=== PATIENT | female | born 2000 | race Caucasian/White ===

== ENCOUNTER 2019-01-06 18:40 | Emergency (ER) | payer OTHER ==
--- NOTE | 2019-01-06 18:58 | EDM.PDOC ---
ED HPI GENERAL MEDICAL PROBLEM - General Chief Complaint: Abdominal Pain Stated Complaint: lower abdominal pain Time Seen by Provider: 01/06/19 18:55 Source of Information: Reports: Patient, RN Notes Reviewed History Limitations: Reports: No Limitations - History of Present Illness INITIAL COMMENTS - FREE TEXT/NARRATIVE: Patient is a 18-year-old female who presents to the ED for evaluation of lower abdominal pain. She notes that this pain has been present for 3 days now. She states that she has a history of ovarian cysts as diagnosed by ultrasound. She notes that her last menstrual period was December 13. She states that she normally get cramps with her periods on the first day. She notes this pain to be dull/ crampy in nature. She did take 200 mg ibuprofen yesterday and this provided little relief. She describes more of a discomfort than a pain. She denies any sexual activity. She notes her mother has a history of ovarian cysts. She further denies any nausea/vomiting/diarrhea, fever/chills or constipation. She states that she had a good BM at noon today. She does not take daily medications except for some allergy medications and vitamins. She states that she does feel discomfort in her pelvis or lower abdomen however this is mostly located on the right lower quadrant of her abdomen. She denies any abdominal surgeries at this time. She states that she's been in fairly good health prior to this. Bilateral Lower Abdomen Pain Score (Numeric/FACES): 4 - Related Data Allergies Allergy/AdvReac Type Severity Reaction Status Date / Time amoxicillin [From Augmentin] AdvReac Mild Other Verified 01/06/19 19:39 clavulanic acid AdvReac Mild Other Verified 01/06/19 19:39 [From Augmentin] Home Meds: Home Meds . [No Known Home Meds] 01/06/19 [History] Past Medical History [facility] History: Reports: Other (See Below) (Right sided ovarian cyst) Social & Family History - Family History OBGYN: Reports: Other (See Below) (mother has ovarian cysts) - Tobacco Use Smoking Status *Q: Never Smoker - Alcohol Use Alcohol Use History: No - Sexual History Sexual History: Reports: None ED ROS GENERAL - Review of Systems Review Of Systems: See Below Constitutional: Denies: Fever, Chills HEENT: Reports: No Symptoms Respiratory: Reports: No Symptoms Cardiovascular: Reports: No Symptoms Endocrine: Reports: No Symptoms GI/Abdominal: Reports: Abdominal Pain (lower abd, mainly RLQ). Denies: Constipation, Diarrhea, Distension, Nausea, Vomiting : Reports: No Symptoms Musculoskeletal: Reports: No Symptoms Skin: Reports: No Symptoms Neurological: Reports: No Symptoms Psychiatric: Reports: No Symptoms Hematologic/Lymphatic: Reports: No Symptoms ED EXAM, GI/ABD - Physical Exam Exam: See Below Exam Limited By: No Limitations General Appearance: Alert, WD/WN, No Apparent Distress Eyes: Bilateral: Normal Appearance Ears: Normal External Exam Nose: Normal Inspection Throat/Mouth: Normal Inspection, Normal Lips, Normal Teeth, Normal Gums, Normal Oropharynx, Normal Voice, No Airway Compromise Head: Atraumatic, Normocephalic Neck: Normal Inspection Respiratory/Chest: No Respiratory Distress, Lungs Clear, Normal Breath Sounds, No Accessory Muscle Use, Chest Non-Tender Cardiovascular: Normal Peripheral Pulses, Regular Rate, Rhythm, No Murmur GI/Abdominal Exam: Normal Bowel Sounds, Soft, No Organomegaly, No Distention, No Mass, Rebound (RLQ), Tender (slightly tender over RLQ) Extremities: Normal Inspection, Normal Capillary Refill Neurological: Alert, Oriented, Normal Cognition, Normal Gait, No Motor/Sensory Deficits Psychiatric: Normal Affect, Normal Mood Skin Exam: Warm, Dry, Intact, Normal Color, No Rash Course - Vital Signs Last Recorded V/S: Last Vital Signs Temp 98.6 F 01/06/19 18:54 Pulse 85 01/06/19 18:54 Resp 18 01/06/19 18:54 BP 147/88 H 01/06/19 18:54 Pulse Ox 100 01/06/19 18:54 - Orders/Labs/Meds Orders: Active Orders 24 hr Category Date Time Status Sodium Chloride 0.9% [Saline Flush] Med 01/06/19 20:15 Active 10 ml FLUSH ONETIME PRN Medication Orders Sodium Chloride (Saline Flush) 10 ml FLUSH ONETIME PRN PRN Reason: KEEP VEIN OPEN Last Admin: 01/06/19 20:42 Dose: 10 ml Labs: Laboratory Tests 01/06/19 01/06/19 01/06/19 Range/Units 19:30 19:30 19:35 WBC 8.38 (3.98-10.04) K/mm3 RBC 5.07 (3.98-5.22) M/mm3 Hgb 14.4 (11.2-15.7) gm/L Hct 42.2 (34.1-44.9) % MCV 83.2 (79.4-94.8) fl MCH 28.4 (25.6-32.2) pg MCHC 34.1 (32.2-35.5) g/dl RDW Std Deviation 36.5 (36.4-46.3) fL Plt Count 351 (182-369) K/mm3 MPV 9.4 (9.4-12.3) fl Neutrophils % (Manual) 69 H (40-60) % Band Neutrophils % 0 (0-10) % Lymphocytes % (Manual) 24 (20-40) % Atypical Lymphs % 0 % Monocytes % (Manual) 6 (2-10) % Eosinophils % (Manual) 0 L (0.7-5.8) % Basophils % (Manual) 1 (0.1-1.2) Platelet Estimate Adequate Plt Morphology Comment Normal RBC Morph Comment Normal Sodium (136-145) mEq/L Potassium (3.5-5.1) mEq/L Chloride (98-107) mEq/L Carbon Dioxide (21-32) mEq/L Anion Gap (5-15) BUN (7-18) mg/dL Creatinine (0.55-1.02) mg/dL Est Cr Clr Drug Dosing mL/min Estimated GFR (MDRD) (>60) mL/min BUN/Creatinine Ratio (14-18) Glucose (74-106) mg/dL Calcium (8.5-10.1) mg/dL Total Bilirubin (0.2-1.0) mg/dL AST (15-37) U/L ALT (14-59) U/L Alkaline Phosphatase (46-116) U/L Total Protein (6.4-8.2) g/dl Albumin (3.4-5.0) g/dl Globulin gm/dL Albumin/Globulin Ratio (1-2) Urine Color Yellow (Yellow) Urine Appearance Clear (Clear) Urine pH 5.5 (5.0-8.0) Ur Specific [place] 1.010 (1.005-1.030) Urine Protein Negative (Negative) Urine Glucose (UA) Negative (Negative) Urine Ketones Negative (Negative) Urine Occult Blood Negative (Negative) Urine Nitrite Negative (Negative) Urine Bilirubin Negative (Negative) Urine Urobilinogen 0.2 (0.2-1.0) Ur Leukocyte Esterase Negative (Negative) Urine RBC Not seen (0-5) /hpf Urine WBC 0-5 (0-5) /hpf Ur Epithelial Cells 0-5 (0-5) /hpf Urine Bacteria Rare (FEW) /hpf Urine Mucus Not seen (FEW) /hpf Urine HCG, Qual Negative (NEGATIVE) 01/06/19 Range/Units 19:35 WBC (3.98-10.04) K/mm3 RBC (3.98-5.22) M/mm3 Hgb (11.2-15.7) gm/L Hct (34.1-44.9) % MCV (79.4-94.8) fl MCH (25.6-32.2) pg MCHC (32.2-35.5) g/dl RDW Std Deviation (36.4-46.3) fL Plt Count (182-369) K/mm3 MPV (9.4-12.3) fl Neutrophils % (Manual) (40-60) % Band Neutrophils % (0-10) % Lymphocytes % (Manual) (20-40) % Atypical Lymphs % % Monocytes % (Manual) (2-10) % Eosinophils % (Manual) (0.7-5.8) % Basophils % (Manual) (0.1-1.2) Platelet Estimate Plt Morphology Comment RBC Morph Comment Sodium 140 (136-145) mEq/L Potassium 3.6 (3.5-5.1) mEq/L Chloride 104 (98-107) mEq/L Carbon Dioxide 26 (21-32) mEq/L Anion Gap 13.6 (5-15) BUN 11 (7-18) mg/dL Creatinine 0.8 (0.55-1.02) mg/dL Est Cr Clr Drug Dosing 114.10 mL/min Estimated GFR (MDRD) > 60 (>60) mL/min BUN/Creatinine Ratio 13.8 L (14-18) Glucose 122 H (74-106) mg/dL Calcium 9.4 (8.5-10.1) mg/dL Total Bilirubin 0.6 (0.2-1.0) mg/dL AST 15 (15-37) U/L ALT 22 (14-59) U/L Alkaline Phosphatase 78 (46-116) U/L Total Protein 7.4 (6.4-8.2) g/dl Albumin 4.6 (3.4-5.0) g/dl Globulin 2.8 gm/dL Albumin/Globulin Ratio 1.6 (1-2) Urine Color (Yellow) Urine Appearance (Clear) Urine pH (5.0-8.0) Ur Specific [place] (1.005-1.030) Urine Protein (Negative) Urine Glucose (UA) (Negative) Urine Ketones (Negative) Urine Occult Blood (Negative) Urine Nitrite (Negative) Urine Bilirubin (Negative) Urine Urobilinogen (0.2-1.0) Ur Leukocyte Esterase (Negative) Urine RBC (0-5) /hpf Urine WBC (0-5) /hpf Ur Epithelial Cells (0-5) /hpf Urine Bacteria (FEW) /hpf Urine Mucus (FEW) /hpf Urine HCG, Qual (NEGATIVE) Meds: Medications Generic Name Dose Route Start Last Admin Trade Name Freq PRN Reason Stop Dose Admin Sodium Chloride 10 ml 01/06/19 20:15 01/06/19 20:42 Saline Flush FLUSH 10 ml ONETIME PRN Administration KEEP VEIN OPEN Discontinued Medications Generic Name Dose Route Start Last Admin Trade Name Freq PRN Reason Stop Dose Admin Iohexol 100 ml 01/06/19 20:15 01/06/19 20:42 Omnipaque-300 IVPUSH 01/06/19 20:16 100 ml ONETIME ONE Administration - Radiology Interpretation Free Text/Narrative:: CT of the abdomen and pelvis reveals a normal-appearing appendix. A 5.3 cm simple appearing cyst within the right adnexa which displaces the uterus to the left side. Gastroesophageal reflux of the contrast. But no other additional abnormality that is appreciated on the CT study of the abdomen and pelvis. - Re-Assessments/Exams Free Text/Narrative Re-Assessment/Exam: 01/06/19 19:25 Patient presents to the ED for evaluation of abdominal pain. Have ordered an abdominal pelvis CT with contrast, CBC, CMP, qualitative urine hCG, and a UA for further evaluation. 01/06/19 20:08 Patient's laboratory evaluation is back, and are unremarkable. 01/06/19 21:[address] did demonstrate a 5.3 simple appearing ovarian cyst on the right adnexa. We'll recommend that she follow up with an [facility] provider of choice. We'll provide her with her clinic numbers and give her other general recommendations for pain relief. Departure - Departure Time of Disposition: 21:14 Disposition: Home, Self-Care 01 Condition: Fair Clinical Impression: Right ovarian cyst - Discharge Information *PRESCRIPTION DRUG MONITORING PROGRAM REVIEWED*: No *COPY OF PRESCRIPTION DRUG MONITORING REPORT IN PATIENT NEENA: No Instructions: Ovarian Cyst, [id number] Referrals: Feli Kramer NP [Primary Care Provider] - Forms: ED Department Discharge Additional Instructions: You have been evaluated in the ED today for your right lower quadrant/pelvic pain. Your laboratory evaluation was is in normal limits. Your CT demonstrated a normal appendix, and a 5.3 cm simple-appearing cyst on your right fallopian tube. Recommend that you follow up with [facility] provider of choice within the next week or 2 for further management of this. Our clinic number is [phone]. You may take 400-600 mg ibuprofen or 500 mg Tylenol every 6 hours as needed for pain relief. Do not exceed 3200 mg Ibuprofen or 4000 mg Tylenol in a 24-hour time span. Please return to the ED if her symptoms change or worsen. - My Orders Last 24 Hours: My Active Orders 01/06/19 20:15 Sodium Chloride 0.9% [Saline Flush] 10 ml FLUSH ONETIME PRN - Assessment/Plan Last 24 Hours: My Active Orders 01/06/19 20:15 Sodium Chloride 0.9% [Saline Flush] 10 ml FLUSH ONETIME PRN
[2019-01-06] MEDS ORDERED: Iohexol 647 MG/ML 100 ML Bottle IVPUSH ONE (20:15)
[2019-01-06] MEDS ORDERED: Sodium Chloride 0.9% 10 ML Syringe FLUSH PRN (20:15)
--- NOTE | 2019-01-06 21:09 | CT ---
CT abdomen and pelvis Technique: Multiple axial sections were obtained from above the dome of the diaphragm inferiorly through the pubic symphysis. Intravenous and oral contrast was utilized. Delayed images were obtained through the bladder. Comparison: No prior abdominal imaging. Findings: Appendix is visualized and appears normal. Right sided adnexal cyst is seen measuring 5.3 cm. This has simple Hounsfield unit measurements and does not appear to be hemorrhagic. This cyst displaces the uterus to the left side. Small portion of the visualized lung bases show nothing acute. Liver contains no focal abnormality. Spleen appears within normal limits. Small amount of contrast reflux is seen into the distal esophagus. Kidneys show symmetric contrast enhancement without hydronephrosis or mass. Pancreas is within normal limits. Gallbladder contains no calcified gallstones. Aorta shows no aneurysm. No retroperitoneal adenopathy or mesenteric abnormalities are seen. No additional pelvic abnormality is seen. Delayed images shows contrast within the distal ureters and bladder. Bone window settings were reviewed which appear within normal limits for the patient's age. Impression: 1. Normal-appearing appendix. 2. 5.3 cm simple appearing cyst within the right adnexa displacing the uterus to the left side. 3. Gastroesophageal reflux of contrast. 4. No additional abnormality is appreciated on CT study of the abdomen and pelvis. Diagnostic code #3
== END 2019-01-06 21:25 | disposition home or self-care (01) ==
LOC: JD.ED 18:40
DX: N83.201 Unspecified ovarian cyst, right side (principal); Z88.1 Allergy status to other antibiotic agents
CPT/HCPCS: 36415; 74177; 80053; 81001; 81025; 85007; 85027; 99284; Q9967

== ENCOUNTER 2019-01-24 06:27 | Day surgery (SDC) | payer OTHER ==
[~2019-01-24 06:27] MED LIST: Lactated Ringers 1,000 ML IV SCH; Lidocaine 1%/Sod Bicarbonate in NS 8.4% 1 ML Syringe IDERM PRN; Sodium Chloride 0.9% 10 ML Syringe FLUSH PRN
[2019-01-24] MEDS ORDERED: Bupivacaine 0.5% 30 ML SDV ONE (06:58)
--- NOTE | 2019-01-24 07:15 | PCM.PREANE ---
Preanesthetic Assessment - Anesthesia/Transfusion/Family Hx Anesthesia History: Prior Anesthesia Without Reaction Family History of Anesthesia Reaction: No Transfusion History: No Prior Transfusion(s) - Review of Systems General: No Symptoms Pulmonary: No Symptoms Cardiovascular: No Symptoms Gastrointestinal: No Symptoms Neurological: No Symptoms Other: Reports: None - Physical Assessment NPO Status Date: 01/23/19 NPO Status Time: 22:00 Pulse: 90 O2 Sat by Pulse Oximetry: 100 Respiratory Rate: 16 Blood Pressure: 143/75 Temperature: 36.6 C Vital Signs: Last Vital Signs Temp 36.6 C 01/24/19 06:38 Pulse 90 01/24/19 06:38 Resp 16 01/24/19 06:38 BP 143/75 H 01/24/19 06:38 Pulse Ox 100 01/24/19 06:38 Height: 1.7 m Weight: 69.7 kg ASA Class: 2 Mental Status: Alert & Oriented x3 Airway Class: Mallampati = 1 Dentition: Reports: Normal Dentition Thyro-Mental Finger Breadths: 3 Mouth Opening Finger Breadths: 3 ROM/Head Extension: Full Lungs: Clear to Auscultation, Normal Respiratory Effort Cardiovascular: Regular Rate, Regular Rhythm - Lab Values: Laboratory Last Values Urine Color Yellow (Yellow) 01/24/19 06:40 Urine Appearance Clear (Clear) 01/24/19 06:40 Urine pH 6.0 (5.0-8.0) 01/24/19 06:40 Ur Specific [place] 1.025 (1.005-1.030) 01/24/19 06:40 Urine Protein Negative (Negative) 01/24/19 06:40 Urine Glucose (UA) Negative (Negative) 01/24/19 06:40 Urine Ketones Negative (Negative) 01/24/19 06:40 Urine Occult Blood Negative (Negative) 01/24/19 06:40 Urine Nitrite Negative (Negative) 01/24/19 06:40 Urine Bilirubin Negative (Negative) 01/24/19 06:40 Urine Urobilinogen 0.2 (0.2-1.0) 01/24/19 06:40 Ur Leukocyte Esterase Trace (Negative) H 01/24/19 06:40 Urine HCG, Qual Negative (NEGATIVE) 01/24/19 06:40 - Allergies Allergies/Adverse Reactions: Allergies Allergy/AdvReac Type Severity Reaction Status Date / Time amoxicillin [From Augmentin] AdvReac Mild Other Verified 01/23/19 13:50 clavulanic acid AdvReac Mild Other Verified 01/23/19 13:50 [From Augmentin] - Anesthesia Plan Pre-Op Medication Ordered: None - Acknowledgements Anesthesia Type Planned: General Anesthesia Pt an Appropriate Candidate for the Planned Anesthesia: Yes Alternatives and Risks of Anesthesia Discussed w Pt/Guardian: Yes Pt/Guardian Understands and Agrees with Anesthesia Plan: Yes PreAnesthesia Questionnaire - Past Health History Medical/Surgical History: Denies Medical/Surgical History HEENT History: Reports: Impaired Vision Cardiovascular History: Reports: High Cholesterol Respiratory History: Reports: Asthma Gastrointestinal History: Reports: None Genitourinary History: Reports: None 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 (See Below) Other OB/BYN History: OVARIAN CYST, PELVIC PAIN, LYSIS OF ADHESIONS, ADNEXAL MASS Musculoskeletal History: Reports: Other (See Below) Other Musculoskeletal History: RIGHT THUMB INJURY Neurological History: Reports: None Psychiatric History: Reports: None Endocrine/Metabolic History: Reports: None Hematologic History: Reports: Other (See Below) Other Hematologic History: FACTOR V LEIDEN Immunologic History: Reports: None Oncologic (Cancer) History: Reports: None Dermatologic History: Reports: None - Past Surgical History Head Surgeries/Procedures: Reports: None HEENT Surgical History: Reports: Cataract Surgery, Tonsillectomy Cardiovascular Surgical History: Reports: None Respiratory Surgical History: Reports: None GI Surgical History: Reports: None Female Surgical History: Reports: None Male Surgical History: Reports: None Endocrine Surgical History: Reports: None Neurological Surgical History: Reports: None Musculoskeletal Surgical History: Reports: None Oncologic Surgical History: Reports: None - SUBSTANCE USE Smoking Status *Q: Never Smoker Recreational Drug Use History: No - HOME MEDS Home Medications: Home Meds Cetirizine [ZyrTEC] 10 mg PO DAILY 01/23/19 [History] Fish Oil/Borage/Flax/Om3,6,9#1 [[place] 3-6-9 1,200 mg Softgel] 1,200 mg PO DAILY 01/23/19 [History] Multivitamin [Daily Ronel] 1 tab PO DAILY 01/23/19 [History] Olopatadine [Patanol 0.1% Ophth Soln] 1 drop EYEBOTH DAILY 01/23/19 [History] - CURRENT (IN HOUSE) MEDS Current Meds: Current Medications Lactated Ringer's (Ringers, Lactated) 1,000 mls @ 125 mls/hr IV ASDIRECTED JOSEP Stop: 01/24/19 23:00 Lidocaine/Sodium Bicarbonate (Buffered Lidocaine 1% In Ns 8.4%) 0.25 ml IDERM ONETIME PRN PRN Reason: Prior to IV Start Stop: 01/24/19 18:00 Sodium Chloride (Saline Flush) 10 ml FLUSH ASDIRECTED PRN PRN Reason: Keep Vein Open Stop: 01/24/19 18:00 Discontinued Medications Bupivacaine HCl (Marcaine 0.5%) Confirm Administered Dose 30 ml .ROUTE .STK-MED ONE Stop: 01/24/19 06:59
[2019-01-24] MEDS ORDERED: Ondansetron 4 MG/2 ML SDV ONE (07:19)
[2019-01-24] MEDS ORDERED: Propofol 200 MG/20 ML SDV ONE (07:19)
[2019-01-24] MEDS ORDERED: Rocuronium 50 MG/5 ML Vial ONE (07:19)
[2019-01-24] MEDS ORDERED: Midazolam 1 MG/ML 2 ML SDV ONE (07:20)
[2019-01-24] MEDS ORDERED: fentaNYL 250 MCG/5 ML SDV ONE (07:20)
[2019-01-24] MEDS ORDERED: Lidocaine 1% 4 ML ONE (07:20)
[2019-01-24] MEDS ORDERED: HYDROmorphone 0.5 MG/0.5 ML Syringe ONE (07:50)
[2019-01-24] MEDS ORDERED: Ketorolac 30 MG/ML SDV ONE (08:03)
[2019-01-24] MEDS ORDERED: fentaNYL 100 MCG/2 ML SDV IVPUSH PRN (08:43)
--- NOTE | 2019-01-24 08:44 | PCM.POSTAN ---
POST ANESTHESIA ASSESSMENT - MENTAL STATUS Mental Status: Alert, Oriented - VITAL SIGNS Pulse Rate: 114 SaO2: 99 Resp Rate: 12 Blood Pressure: 132/70 Temperature: 37.1 C - RESPIRATORY Respiratory Status: Respiratory Rate WNL, Airway Patent, O2 Saturation Stable, Supplemental Oxygen - CARDIOVASCULAR CV Status: Pulse Rate WNL, Blood Pressure Stable - GASTROINTESTINAL GI Status: No Symptoms - PAIN Pain Score: 0 - POST OP HYDRATION Hydration Status: Adequate & Stable - OBSERVATIONS Free Text/Narrative:: no anesthesia complications noted
--- NOTE | 2019-01-24 08:51 | PCM.OPNOTE ---
- General Post-Op/Procedure Note Date of Surgery/Procedure: 01/24/19 Operative Procedure(s): Laparoscopic fulguration of multiple right ovarian cysts Findings: Right ovary with multiple small cysts present. No larger dominant cysts seen. Fulguration and ovarian drilling performed on the cysts in the right ovary. Left ovary with 2-3 small cysts present. These were left in place. Uterus and bilateral fallopian tubes were normal appearing. Retrocecal appendix normal in appearance. Normal-appearing portions of the liver, gallbladder and stomach. Normal-appearing intestines. Pre Op Diagnosis: Adnexal mass in the right ovary with ovarian cyst present Post-Op Diagnosis: Polycystic right ovary status post fulguration and excision of multiple cysts. Anesthesia Technique: General ET Tube Primary Surgeon: Ricky Jackson Anesthesia Provider: Michael Santiago Winding Lathe Operator: Bull Clifton Winding Lathe Operator: Tom Coburn ([place] student) Reason Winding Lathe Operator Was Necessary: Patient safety and reduction of morbidity and mortality Role of Winding Lathe Operator: Use of laparoscopic instruments during the case Pathology: None Fluid Replacement, Intraop: 1,500 Output, Urine Amount: 50 EBL in mLs: 5 Complications: None Condition: Good Free Text/Narrative:: Length of procedure: 40 minutes Procedure in detail: The patient was seen in the preoperative holding area and risks, benefits, indications, and alternatives of the procedure were reviewed with the patient and she desired to proceed with a diagnostic laparoscopy, ovarian cystectomy of affected ovary, possible oophorectomy possible lysis of adhesions. Consents were reviewed. The patient was taken back to the OR and given general anesthesia with an endotracheal tube which was placed without difficulty. She was placed in dorsal supine position. A Farley catheter was placed without difficulty. She was prepped and draped in normal sterile fashion. Attention was then turned to her umbilicus and was injected with 0.5% Marcaine and a 5 mm stab incision was made with a scalpel and a Veress needle was then inserted through the incision. The gas was turned on, with an opening pressure of 4 mmHg. Pneumoperitoneum was continued until 15 mmHg pressure. A 5 mm trocar was then inserted under direct visualization through the incision without difficulty. A global view of the abdomen was taken and noted to be overall free of adhesions. Attention was then turned to the suprapubic area and the skin was injected with local anesthetic. A skin incision was made using a scalpel. A 5 mm trocar was then inserted under direct visualization with laparoscope. A global view of the abdomen was then taken and noted to be overall normal in appearance. The intestines, visualized portions of the liver and gallbladder and upper abdomen were overall normal appearance. Attention was then turned to the left lower quadrant and an avascular space approximately correction between the ASIS and umbilicus was identified. The skin was injected with local anesthetic and a stab incision was made. A 5 mm trocar was inserted under direct visualization through the incision without difficulty. The uterus was then inspected and felt to be overall normal in appearance. The fallopian tubes were normal bilaterally. The right ovary was inspected and noted to have multiple 1-2 cm cysts present within the ovary. The left ovary had 2-3 small cysts measuring less than 5 mm. A harmonic device was then used to drill into the ovarian cysts and incise the cyst wall to allow for full drainage of the cyst. There was no one dominant cyst present for removal as was previously seen on the ultrasound. There were approximately 8-10 cyst within the right ovary that were drilled with incision of the cyst wall. There was no ovarian cyst wall that was able to be grasped and sent for pathology. There was no pathology from the case. After these cysts were drained and the ovary was hemostatic. The ovary was then placed back into its normal position and Interceed was placed over the ovary to reduce scar formation. The abdomen was then further explored and no felt to be overall normal and the case was completed at this time. The gas was then evacuated from the peritoneum and trocars removed. These were closed using 4-0 Monocryl suture and Dermabond. The case was completed at this time and all instruments were removed. The Farley catheter was removed at this time. The patient was awoken from general anesthesia and taken to the PACU for recovery in stable condition. She will be discharged to home once she is able to meet all postoperative milestones including tolerating small amount of oral intake and liquids, ambulate without difficulty, her pain controlled with oral medications and able to void without difficulty. She will follow-up in the clinic in 1 week or earlier as needed. Sponge, lap, needle, and instrument counts were correct x 2.
[2019-01-24] MEDS ORDERED: Acetaminophen/oxyCODONE 325-5 MG Tab PO PRN (09:28)
--- NOTE | 2019-01-24 10:15 | PCM48HPAN ---
Post Anesthesia Note - EVALUATION WITHIN 48HRS OF ANESTHETIC Vital Signs in Normal Range: Yes Patient Participated in Evaluation: Yes Respiratory Function Stable: Yes Airway Patent: Yes Cardiovascular Function Stable: Yes Hydration Status Stable: Yes Pain Control Satisfactory: Yes Nausea and Vomiting Control Satisfactory: Yes Mental Status Recovered: Yes (no complaints- mom with) Pulse Rate: 114 Resp Rate: 14 Temperature: 98.7 F Blood Pressure: 132/70
[2019-01-24] MEDS ORDERED: Lactated Ringers 1,000 ML ONE (12:51)
== END 2019-01-24 10:55 | disposition home or self-care (01) ==
LOC: JD.SDS 06:27
PROVIDERS: ATTEND Obstetrics & Gynecology
DX: E28.2 Polycystic ovarian syndrome (principal); E78.00 Pure hypercholesterolemia, unspecified; J45.909 Unspecified asthma, uncomplicated; F17.210 Nicotine dependence, cigarettes, uncomplicated; H26.9 Unspecified cataract; Z88.0 Allergy status to penicillin; Z79.899 Other long term (current) drug therapy
CPT/HCPCS: 49322; 81003; 81025; A9270; J1170; J1885; J2001; J2250; J2405; J2704; J3010; J3490; J7120; 00840; C1765

== ENCOUNTER 2019-07-30 12:39 | Emergency (ER) | payer BC, OTHER ==
--- NOTE | 2019-07-30 13:35 | EDM.PDOC ---
ED HPI GENERAL MEDICAL PROBLEM - General Chief Complaint: Abdominal Pain Stated Complaint: LOWER ABD PAIN Time Seen by Provider: 07/30/19 12:45 Source of Information: Reports: Patient History Limitations: Reports: No Limitations - History of Present Illness INITIAL COMMENTS - FREE TEXT/NARRATIVE: Patient is a 19-year-old female presents to the ED today complaining of lower abdominal discomfort this morning after urinating. She states pain came on quite quickly and went away quite quickly. It is described as a sharp crampy pain. Since then she's had no further abdominal discomfort. She denies any increased frequency of urination or decrease in amount. She has not urinated since onset of pain this morning. She denies any constipation, diarrhea, bloody stools, or dark tarry stools. She denies being on her menstrual cycle. She does have a history of ovarian cyst to the right ovary. Patient did have surgery to remove. This was conducted this past summer. Patient denies being sexually active. Denies any abnormal vaginal discharge. Denies any fever, nausea or vomiting, or any additional complaints. She has eaten and drank this morning with no complications. Lower Abdominal Pain Score (Numeric/FACES): 7 - Related Data Allergies Allergy/AdvReac Type Severity Reaction Status Date / Time amoxicillin [From Augmentin] AdvReac Mild Other Verified 07/30/19 12:51 clavulanic acid AdvReac Mild Other Verified 07/30/19 12:51 [From Augmentin] Home Meds: Home Meds Multivitamin [Daily Ronel] 1 tab PO DAILY 01/23/19 [History] Past Medical History - Past Health History Medical/Surgical History: Denies Medical/Surgical History HEENT History: Reports: Impaired Vision Cardiovascular History: Reports: High Cholesterol Respiratory History: Reports: Asthma Gastrointestinal History: Reports: None Genitourinary History: Reports: Other (See Below) Other Genitourinary History: ovarian cyst CIRCUIT[employer]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 INSPECTOR History: Reports: Other (See Below) Other CIRCUITRY NEGATIVE INSPECTOR History: OVARIAN CYST, PELVIC PAIN, LYSIS OF ADHESIONS, ADNEXAL MASS Musculoskeletal History: Reports: Other (See Below) Other Musculoskeletal History: RIGHT THUMB INJURY Neurological History: Reports: None Psychiatric History: Reports: None Endocrine/Metabolic History: Reports: None Hematologic History: Reports: Other (See Below) Other Hematologic History: FACTOR V LEIDEN Immunologic History: Reports: None Oncologic (Cancer) History: Reports: None Dermatologic History: Reports: None - Past Surgical History Head Surgeries/Procedures: Reports: None HEENT Surgical History: Reports: Cataract Surgery, Tonsillectomy Cardiovascular Surgical History: Reports: None Respiratory Surgical History: Reports: None GI Surgical History: Reports: None Female Surgical History: Reports: Other (See Below) Other Female Surgeries/Procedures: ovarian cyst removal on right ovary Endocrine Surgical History: Reports: None Neurological Surgical History: Reports: None Musculoskeletal Surgical History: Reports: None Oncologic Surgical History: Reports: None Social & Family History - Family History OBGYN: Reports: Other (See Below) - Tobacco Use Smoking Status *Q: Never Smoker - Caffeine Use Caffeine Use: Reports: Coffee - Recreational Drug Use Recreational Drug Use: No - Sexual History Sexual History: Reports: None ED ROS GENERAL - Review of Systems Review Of Systems: Comprehensive ROS is negative, except as noted in HPI. ED EXAM, GI/ABD - Physical Exam Exam: See Below Exam Limited By: No Limitations General Appearance: Alert, WD/WN, No Apparent Distress Ears: Hearing Grossly Normal Nose: Normal Inspection Throat/Mouth: Normal Voice, No Airway Compromise Head: Atraumatic, Normocephalic Neck: Normal Inspection, Supple Respiratory/Chest: No Respiratory Distress, Lungs Clear, Normal Breath Sounds, No Accessory Muscle Use Cardiovascular: Normal Peripheral Pulses, Regular Rate, Rhythm, No Murmur GI/Abdominal Exam: Normal Bowel Sounds, Soft, Non-Tender, No Organomegaly, No Distention Back Exam: Normal Inspection, Full Range of Motion. No: CVA Tenderness (L), CVA Tenderness (R) Extremities: Normal Inspection Neurological: Alert, Oriented, CN II-XII Intact, Normal Cognition, No Motor/ Sensory Deficits Psychiatric: Normal Affect, Normal Mood Skin Exam: Warm, Dry, Intact, Normal Color Course - Vital Signs Last Recorded V/S: Last Vital Signs Temp 96.7 F 07/30/19 12:46 Pulse 98 07/30/19 12:46 Resp 18 07/30/19 12:46 BP 140/77 07/30/19 12:46 Pulse Ox 99 07/30/19 12:46 - Orders/Labs/Meds Labs: Laboratory Tests 07/30/19 07/30/19 Range/Units 13:08 13:08 Urine Color Yellow (Yellow) Urine Appearance Clear (Clear) Urine pH 7.5 (5.0-8.0) Ur Specific Mccammon 1.020 (1.005-1.030) Urine Protein Negative (Negative) Urine Glucose (UA) Negative (Negative) Urine Ketones Negative (Negative) Urine Occult Blood Negative (Negative) Urine Nitrite Negative (Negative) Urine Bilirubin Negative (Negative) Urine Urobilinogen 0.2 (0.2-1.0) Ur Leukocyte Esterase Negative (Negative) Urine HCG, Qual Negative (NEGATIVE) - Re-Assessments/Exams Free Text/Narrative Re-Assessment/Exam: On exam patient has no pain to her abdomen, adnexal region, or along the suprapubic region. Vital signs are stable. She is afebrile. Of note patient has not urinated since this morning. She denies any increased frequency of urination and/or decrease in amount. Urinalysis will be obtained as well as an hCG. UA was negative for infection. HCG was negative as well. Reassessment, on reexamination of the patient's abdomen there is no tenderness whatsoever. She has no complaints at this time. Vital signs remained stable. I do not have clear indication what caused her pain this morning. She does not feel constipated. There's been no increase in flatulence. She is not currently on her menstrual cycle. I've asked the patient to return back to the ED if she develops any new or worsening symptoms. Return precautions discussed with her. Discharge instructions as documented. Departure - Departure Time of Disposition: 13:33 Disposition: Home, Self-Care 01 Condition: Good Clinical Impression: Abdominal pain Qualifiers: Abdominal location: lower abdomen, unspecified Qualified Code(s): R10.30 - Lower abdominal pain, unspecified - Discharge Information Instructions: Abdominal Pain, Adult, [id number] Referrals: Latia Montaño MD [Primary Care Provider] - Forms: ED Department Discharge Additional Instructions: As discussed, it is unclear what caused your abdominal pain. On evaluation you have no abdominal discomfort. Urinalysis was negative. Please monitor for any new or worsening symptoms. If so return back to ED for reevaluation. Sepsis Event Note - Evaluation Sepsis Screening Result: No Definite Risk - Focused Exam Vital Signs: Vital Signs Temp Pulse Resp BP Pulse Ox 07/30/19 12:46 96.7 F 98 18 140/77 99 Date Exam was Performed: 07/30/19 Time Exam was Performed: 13:38
== END 2019-07-30 13:45 | disposition home or self-care (01) ==
LOC: JD.ED 12:39
DX: R10.30 Lower abdominal pain, unspecified (principal); J45.909 Unspecified asthma, uncomplicated; Z88.1 Allergy status to other antibiotic agents
CPT/HCPCS: 81003; 81025; 99282; 99284